=== PATIENT | male | born 1950 | race Caucasian/White ===

== ENCOUNTER 2020-12-01 08:18 | Emergency (ER) | payer OTHER, MEDICAID ==
[~2020-12-01] VITALS: Ht 180.3 cm; Wt 97.3 kg
[2020-12-01] MEDS ORDERED: FUROSEMIDE 40 MG/4 ML VIAL IV ONE (08:45)
[2020-12-01 09:04] LABS: Basophils # (auto) 0.1 10 ^3/uL (0-0.2); Basophils % (auto) 0.7 % (0.0-2.0); Eosinophils # (auto) 0.2 10 ^3/uL (0-0.8); Eosinophils % (auto) 1.3 % (0.0-7.0); Hematocrit 46.4 % (41.0-53.0); Hemoglobin 15.4 g/dL (13.5-17.5); Lymphocytes # (auto) 1.2 10 ^3/uL (0.4-5.4); Mean Corpuscular Hemoglobin 27.5 pg (28.0-32.0); Mean Corpuscular Hgb Conc. 33.1 g/dL (32.0-36.0); Mean Corpuscular Volume 82.9 fL (80.0-100.0); Monocytes # (auto) 0.7 10 ^3/uL (0-1.3); Monocytes % (auto) 5.9 % (0.0-12.0); Neutrophils # (auto) 10.3 10 ^3/uL (1.6-8.6); Neutrophils % (auto) 82.1 % (37.0-80.0); Nucleated Red Blood Cells % 0.2 %; Platelet Count (auto) 266 10^3/uL (140-450); Red Blood Cells 5.61 10^6/uL (4.5-5.90); Red Cell Distribution Width 15.3 % (11.8-14.3); White Blood Cell 12.6 10^3/uL (4.4-10.8)
[2020-12-01 09:17] LABS: INR 1.04 (0.9-1.15)
[2020-12-01 09:19] LABS: Albumin 2.7 g/dL (3.4-5.0); Anion Gap 8 (5-15); Blood Urea Nitrogen 17 mg/dL (7-18); Calcium 8.2 mg/dL (8.5-10.1); Carbon Dioxide 24 mmol/L (21-32); Chloride 102 mmol/L (98-107); Glucose 317 mg/dL (74-106); Potassium 3.9 mmol/L (3.5-5.1); Sodium 134 mmol/L (136-145)
[2020-12-01 09:29] LABS: Alanine Aminotransferase 24 U/L (16-61); Alkaline Phosphatase 103 U/L (45-117); Aspartate Aminotransferase 11 U/L (15-37); BUN/Creatinine Ratio 15.5; Bilirubin, Total 0.8 mg/dL (0.2-1.0); GFR African American 85 mL/min; GFR Non-African American 71 mL/min
[2020-12-01 09:48] LABS: Urine WBC None Seen /hpf (0 - 3)
[2020-12-01 09:56] LABS: Urine Bacteria NONE SEEN /hpf (None Seen); Urine Blood Negative /uL (Negative); Urine Specific Gravity 1.011 (1.001-1.035)
[2020-12-01 12:35] VITALS: BP 154/83
== END 2020-12-01 12:45 | disposition home or self-care (01) ==
LOC: EDBD 08:18 → EDUNIT# 08:18 → ER 08:18
DX: I50.9 Heart failure, unspecified (principal); Z86.73 Personal history of transient ischemic attack (TIA), and cerebral infarction without residual deficits
CPT/HCPCS: 36415; 71045; 80053; 81001; 83880; 84484; 85025; 85610; 85730; 93005; 96374; 99284; J1940

== ENCOUNTER 2021-01-03 08:26 | Emergency (ER) | payer MEDICAID, OTHER ==
[~2021-01-03] VITALS: Ht 175.3 cm; Wt 113.4 kg
[2021-01-03] MEDS ORDERED: FUROSEMIDE 40 MG/4 ML VIAL IV ONE (09:00)
[2021-01-03 09:09] LABS: Basophils # (auto) 0.1 10 ^3/uL (0-0.2); Basophils % (auto) 1.2 % (0.0-2.0); Eosinophils # (auto) 0.2 10 ^3/uL (0-0.8); Eosinophils % (auto) 2.6 % (0.0-7.0); Hematocrit 46.2 % (41.0-53.0); Hemoglobin 15.4 g/dL (13.5-17.5); Lymphocytes # (auto) 1.8 10 ^3/uL (0.4-5.4); Lymphocytes % (auto) 19.6 % (10.0-50.0); Mean Corpuscular Hemoglobin 27.3 pg (28.0-32.0); Mean Corpuscular Hgb Conc. 33.3 g/dL (32.0-36.0); Mean Corpuscular Volume 82.1 fL (80.0-100.0); Monocytes # (auto) 0.8 10 ^3/uL (0-1.3); Neutrophils # (auto) 6.1 10 ^3/uL (1.6-8.6); Neutrophils % (auto) 67.6 % (37.0-80.0); Nucleated Red Blood Cells % 0.1 %; Platelet Count (auto) 353 10^3/uL (140-450); Red Blood Cells 5.63 10^6/uL (4.5-5.90); Red Cell Distribution Width 15.3 % (11.8-14.3); White Blood Cell 9.1 10^3/uL (4.4-10.8)
[2021-01-03 09:25] LABS: Albumin 3.1 g/dL (3.4-5.0); BUN/Creatinine Ratio 16.5; Calcium 9.1 mg/dL (8.5-10.1); Potassium 4.1 mmol/L (3.5-5.1)
[2021-01-03 09:29] LABS: Bilirubin, Total 0.5 mg/dL (0.2-1.0); Total Protein 7.6 g/dL (6.4-8.2)
[2021-01-03] MEDS ORDERED: cefTRIAXone 1GM/50ML D5W 50 ML IV ONE (10:30)
[2021-01-03 11:25] LABS: Urine WBC None Seen /hpf (0 - 3)
[2021-01-03 11:43] LABS: Urine Bacteria NONE SEEN /hpf (None Seen); Urine Blood Negative /uL (Negative); Urine Mucus FEW (None Seen); Urine Specific Gravity 1.008 (1.001-1.035)
[2021-01-03 12:03] VITALS: BP 107/68
== END 2021-01-03 12:42 | disposition home or self-care (01) ==
LOC: EDBD 08:26 → ER 08:26
DX: I11.0 Hypertensive heart disease with heart failure (principal); I50.43 Acute on chronic combined systolic (congestive) and diastolic (congestive) heart failure; E11.9 Type 2 diabetes mellitus without complications; Z20.822 Contact with and (suspected) exposure to COVID-19
CPT/HCPCS: 36415; 71045; 80053; 81001; 83880; 85025; 87426; 93005; 96365; 96366; 96375; 99284; J0696; J1940

== ENCOUNTER 2022-06-18 09:07 | Emergency (ER) | payer OTHER ==
[~2022-06-18] VITALS: Ht 177.8 cm; Wt 95.0 kg
[2022-06-18] MEDS ORDERED: ACCU-CHEK COMFORT CURVE STRIP VI ONE (09:30)
[2022-06-18 10:55] LABS: Basophils # (auto) 0.1 10 ^3/uL (0-0.2); Basophils % (auto) 0.6 % (0.0-2.0); Eosinophils # (auto) 0.2 10 ^3/uL (0-0.8); Eosinophils % (auto) 1.7 % (0.0-7.0); Hematocrit 45.4 % (41.0-53.0); Hemoglobin 15.4 g/dL (13.5-17.5); Lymphocytes # (auto) 1.8 10 ^3/uL (0.4-5.4); Lymphocytes % (auto) 16.4 % (10.0-50.0); Mean Corpuscular Hgb Conc. 33.9 g/dL (32.0-36.0); Mean Corpuscular Volume 85.7 fL (80.0-100.0); Monocytes # (auto) 0.9 10 ^3/uL (0-1.3); Monocytes % (auto) 8.1 % (0.0-12.0); Neutrophils # (auto) 7.9 10 ^3/uL (1.6-8.6); Neutrophils % (auto) 73.2 % (37.0-80.0); Nucleated Red Blood Cells % 0.1 %; Red Blood Cells 5.29 10^6/uL (4.5-5.90); Red Cell Distribution Width 13.7 % (11.8-14.3); White Blood Cell 10.7 10^3/uL (4.4-10.8)
[2022-06-18 11:12] LABS: Albumin 3.2 g/dL (3.4-5.0); Calcium 9.1 mg/dL (8.5-10.1); Potassium 3.8 mmol/L (3.5-5.1)
[2022-06-18 11:14] LABS: BUN/Creatinine Ratio 19.2
[2022-06-18 11:17] LABS: Bilirubin, Total 0.8 mg/dL (0.2-1.0); Total Protein 6.9 g/dL (6.4-8.2)
[2022-06-18 11:37] LABS: Alcohol, Urine < 3.0 mg/dL (0-10); Amphetamine Screen, Urine POSITIVE (NEGATIVE); Barbiturate Scree,Urine NEGATIVE (NEGATIVE); Benzodiazephine Screen, Urine NEGATIVE (NEGATIVE); Cannabinoid Screen, Urine NEGATIVE (NEGATIVE); Cocaine Screen, Urine NEGATIVE (NEGATIVE); Opiate Scree,Urine NEGATIVE (NEGATIVE); Phencyclidine Screen, Urine NEGATIVE (NEGATIVE)
[2022-06-18 11:39] LABS: Urine Bacteria NONE SEEN /hpf (None Seen); Urine Blood Negative /uL (Negative); Urine WBC 1 /hpf (0 - 3)
[2022-06-18] MEDS ORDERED: SODIUM CHLORIDE 0.9% 1,000 ML IV ONE (12:45)
[2022-06-18] MEDS ORDERED: SODIUM CHLORIDE 0.9% 1,000 ML IVB ONE (12:45)
[2022-06-18] MEDS ORDERED: ASPirin 81 mg TAB PO ONE (12:45)
[2022-06-18 16:20] VITALS: BP 150/91
== END 2022-06-18 16:22 | disposition home or self-care (01) ==
LOC: EDBD 09:07 → ER 09:14
DX: R55 Syncope and collapse (principal); E11.65 Type 2 diabetes mellitus with hyperglycemia; E11.21 Type 2 diabetes mellitus with diabetic nephropathy; E44.1 Mild protein-calorie malnutrition; F15.10 Other stimulant abuse, uncomplicated; Z98.61 Coronary angioplasty status; Z68.30 Body mass index [BMI] 30.0-30.9, adult
CPT/HCPCS: 36415; 70450; 71045; 80053; 80307; 81001; 83605; 83735; 83880; 84484; 85025; 85379; 87040; 93005; 96360; 96361; 99284; J7030

== ENCOUNTER 2022-08-11 13:13 | Emergency (ER) | payer OTHER ==
[~2022-08-11] VITALS: Ht 175.3 cm; Wt 94.3 kg
[2022-08-11] MEDS ORDERED: AZITHROMYCIN 500MG/ 250ML 250 ML IV ONE (13:30)
[2022-08-11] MEDS ORDERED: methylPREDNISolone SOD SUCC 125 MG/2 ML VL IV ONE (13:30)
[2022-08-11 14:00] LABS: Basophils # (auto) 0 10 ^3/uL (0-0.2); Basophils % (auto) 0.6 % (0.0-2.0); Eosinophils # (auto) 0 10 ^3/uL (0-0.8); Eosinophils % (auto) 0.2 % (0.0-7.0); Hematocrit 45.1 % (41.0-53.0); Lymphocytes # (auto) 0.5 10 ^3/uL (0.4-5.4); Lymphocytes % (auto) 6.4 % (10.0-50.0); Mean Corpuscular Hemoglobin 28.3 pg (28.0-32.0); Mean Corpuscular Hgb Conc. 33.2 g/dL (32.0-36.0); Mean Corpuscular Volume 85.4 fL (80.0-100.0); Monocytes # (auto) 0.6 10 ^3/uL (0-1.3); Monocytes % (auto) 8.6 % (0.0-12.0); Neutrophils # (auto) 6.3 10 ^3/uL (1.6-8.6); Neutrophils % (auto) 84.2 % (37.0-80.0); Nucleated Red Blood Cells % 0.1 %; Red Blood Cells 5.29 10^6/uL (4.5-5.90); Red Cell Distribution Width 14.1 % (11.8-14.3); White Blood Cell 7.4 10^3/uL (4.4-10.8)
[2022-08-11 14:17] LABS: Albumin 3.3 g/dL (3.4-5.0); Calcium 8.6 mg/dL (8.5-10.1); Magnesium 2.1 mg/dL (1.6-2.6)
[2022-08-11 14:20] LABS: BUN/Creatinine Ratio 16.4; Bilirubin, Total 0.7 mg/dL (0.2-1.0); Total Protein 6.7 g/dL (6.4-8.2)
[2022-08-11] MEDS ORDERED: METH4PAK PO ×2 (15:02→16:59)
[2022-08-11] MEDS ORDERED: AZIT1POW PO ×2 (15:02→16:59)
[2022-08-11 16:48] VITALS: BP 129/68
== END 2022-08-11 16:48 | disposition home or self-care (01) ==
LOC: ER 13:13
DX: U07.1 COVID-19 (principal); I11.0 Hypertensive heart disease with heart failure; I50.9 Heart failure, unspecified; E11.9 Type 2 diabetes mellitus without complications; I25.2 Old myocardial infarction; R07.89 Other chest pain
CPT/HCPCS: 36415; 71046; 80053; 83605; 83735; 83880; 84484; 85025; 85379; 87040; 87426; 87804; 96365; 96366; 96375; 99284; J0456; J2930

== ENCOUNTER 2022-09-19 01:39 | Emergency (ER) | payer OTHER ==
[~2022-09-19] VITALS: Ht 175.3 cm; Wt 93.0 kg
[~2022-09-19 01:39] MED LIST: AZIT1POW PO; METH4PAK PO
[2022-09-19 01:57] VITALS: BP 134/76
== END 2022-09-19 04:13 | disposition left against medical advice (07) ==
LOC: ER 01:39
DX: R21 Rash and other nonspecific skin eruption (principal); Z53.21 Procedure and treatment not carried out due to patient leaving prior to being seen by health care provider

== ENCOUNTER 2023-03-09 16:15 | Emergency (ER) | payer BC, OTHER ==
[~2023-03-09] VITALS: Ht 175.3 cm; Wt 90.1 kg
[2023-03-09 16:45] VITALS: PULSE 99; RESP 20; O2SAT 97
[2023-03-09 17:04] LABS: Basophils # (auto) 0.1 10 ^3/uL (0-0.2); Basophils % (auto) 0.9 % (0.0-2.0); Eosinophils # (auto) 0.1 10 ^3/uL (0-0.8); Eosinophils % (auto) 1.5 % (0.0-7.0); Hematocrit 38.6 % (41.0-53.0); Hemoglobin 12.8 g/dL (13.5-17.5); Lymphocytes # (auto) 0.8 10 ^3/uL (0.4-5.4); Lymphocytes % (auto) 12.8 % (10.0-50.0); Mean Corpuscular Hemoglobin 27.9 pg (28.0-32.0); Mean Corpuscular Hgb Conc. 33.2 g/dL (32.0-36.0); Mean Corpuscular Volume 84.1 fL (80.0-100.0); Monocytes # (auto) 0.6 10 ^3/uL (0-1.3); Neutrophils # (auto) 4.8 10 ^3/uL (1.6-8.6); Neutrophils % (auto) 75.8 % (37.0-80.0); Red Blood Cells 4.59 10^6/uL (4.5-5.90); Red Cell Distribution Width 14.1 % (11.8-14.3); White Blood Cell 6.3 10^3/uL (4.4-10.8)
[2023-03-09 17:21] LABS: Albumin 2.5 g/dL (3.4-5.0); Magnesium 1.9 mg/dL (1.6-2.6); Potassium 4.5 mmol/L (3.5-5.1)
[2023-03-09 17:24] LABS: BUN/Creatinine Ratio 14.9 (10.0-20.0); Bilirubin, Total 0.4 mg/dL (0.2-1.0); Total Protein 5.4 g/dL (6.4-8.2)
[2023-03-09] MEDS ORDERED: InsuLIN REG 1unit/0.01ml Soln (100units/ml) IV ONE (19:00)
[2023-03-09] MEDS ORDERED: SODIUM CHLORIDE 0.9% 2,000 ML IV ONE (19:00)
[2023-03-09 19:34] VITALS: PULSE 103; RESP 22; O2SAT 94
[2023-03-09 20:00] VITALS: TEMP 98.9
[2023-03-09 20:40] LABS: Urine Bacteria NONE SEEN /hpf (None Seen); Urine Blood Negative /uL (Negative); Urine Clarity Clear (Clear); Urine Color Yellow (Yellow); Urine Protein, UAD 2+ (Negative); Urine Specific Gravity 1.025 (1.001-1.035); Urine Urobilinogen Normal (Negative); Urine WBC <1 /hpf (0 - 3)
[2023-03-09 20:54] LABS: Alcohol, Urine < 3.0 mg/dL (0-10); Amphetamine Screen, Urine POSITIVE (NEGATIVE); Barbiturate Scree,Urine NEGATIVE (NEGATIVE); Benzodiazephine Screen, Urine NEGATIVE (NEGATIVE); Cannabinoid Screen, Urine NEGATIVE (NEGATIVE); Cocaine Screen, Urine NEGATIVE (NEGATIVE); Phencyclidine Screen, Urine NEGATIVE (NEGATIVE)
[2023-03-09 21:01] LABS: Opiate Scree,Urine NEGATIVE (NEGATIVE)
[2023-03-09 21:42] VITALS: BP 126/94; PULSE 110; RESP 20; O2SAT 97
== END 2023-03-09 21:41 | disposition home or self-care (01) ==
LOC: ER 16:15 → EDBD 16:15 → ER 21:39
DX: E11.65 Type 2 diabetes mellitus with hyperglycemia (principal); R06.00 Dyspnea, unspecified; I11.0 Hypertensive heart disease with heart failure; I50.9 Heart failure, unspecified; I25.2 Old myocardial infarction; F15.10 Other stimulant abuse, uncomplicated; Z79.899 Other long term (current) drug therapy
CPT/HCPCS: 36415; 71045; 80053; 80307; 81001; 82010; 82962; 83735; 83880; 84484; 85025; 96361; 96374; 99285; J1815; J7030

== ENCOUNTER 2023-03-09 23:46 | Inpatient (IN) | payer BC, MEDICAID ==
[~2023-03-09] VITALS: Ht 175.3 cm; Wt 91.8 kg
[2023-03-10 00:30] VITALS: PULSE 102; RESP 96; O2SAT 95
[2023-03-10 03:56] LABS: Basophils # (auto) 0 10 ^3/uL (0-0.2); Basophils % (auto) 0.4 % (0.0-2.0); Eosinophils # (auto) 0.1 10 ^3/uL (0-0.8); Eosinophils % (auto) 1.6 % (0.0-7.0); Hematocrit 38.8 % (41.0-53.0); Hemoglobin 12.6 g/dL (13.5-17.5); Lymphocytes # (auto) 1.3 10 ^3/uL (0.4-5.4); Mean Corpuscular Hemoglobin 27.8 pg (28.0-32.0); Mean Corpuscular Hgb Conc. 32.5 g/dL (32.0-36.0); Mean Corpuscular Volume 85.4 fL (80.0-100.0); Monocytes # (auto) 0.8 10 ^3/uL (0-1.3); Monocytes % (auto) 11.2 % (0.0-12.0); Neutrophils % (auto) 68.8 % (37.0-80.0); Red Blood Cells 4.54 10^6/uL (4.5-5.90); Red Cell Distribution Width 14.1 % (11.8-14.3); White Blood Cell 7.2 10^3/uL (4.4-10.8)
[2023-03-10 04:18] LABS: Albumin 2.3 g/dL (3.4-5.0); BUN/Creatinine Ratio 15.6 (10.0-20.0); Calcium 7.7 mg/dL (8.5-10.1); Magnesium 1.7 mg/dL (1.6-2.6); Potassium 3.8 mmol/L (3.5-5.1)
[2023-03-10 04:21] LABS: Bilirubin, Total 0.4 mg/dL (0.2-1.0); Total Protein 5.8 g/dL (6.4-8.2)
[2023-03-10] MEDS ORDERED: IOHEXOL 350 MG/ML 100ML IJ ONE ×2 (05:24→13:35)
[2023-03-10] MEDS ORDERED: ALBUTEROL SULF 2.5 MG/0.5ML(0.5%) NEB SOLN NEB ONE (06:15)
[2023-03-10 06:20] LABS: COVID19 ANTIGEN SOFIA FIA NEGATIVE (NEGATIVE); Rapid Influenza A Negative (Negative); Rapid Influenza B Negative (Negative)
[2023-03-10] MEDS ORDERED: NITROGLYCERIN 0.4 MG SL TAB SL PRN (07:15)
[2023-03-10] MEDS ORDERED: ONDANSETRON HCL 4 MG/2 ML VIAL IV PRN (07:15)
[2023-03-10] MEDS ORDERED: ALBUMIN 25% 100 ML IV ONE (07:15)
[2023-03-10] MEDS ORDERED: MORPHINE SULFATE INJ 2 MG/ml SYRG IV PRN (07:15)
[2023-03-10] MEDS ORDERED: DEXTROSE (50%) 50ML SYRG IV PRN (07:15)
[2023-03-10] MEDS ORDERED: ALBUTEROL SULF 2.5 MG/0.5ML(0.5%) NEB SOLN NEB PRN (07:15)
[2023-03-10 08:00] VITALS: PULSE 97; RESP 20; O2SAT 99
[2023-03-10 08:26] LABS: Albumin 2.3 g/dL (3.4-5.0); Calcium 7.9 mg/dL (8.5-10.1); Potassium 3.8 mmol/L (3.5-5.1)
[2023-03-10 08:29] LABS: Basophils # (auto) 0 10 ^3/uL (0-0.2); Basophils % (auto) 0.4 % (0.0-2.0); Eosinophils # (auto) 0.1 10 ^3/uL (0-0.8); Hematocrit 38.7 % (41.0-53.0); Hemoglobin 12.8 g/dL (13.5-17.5); Lymphocytes # (auto) 1.3 10 ^3/uL (0.4-5.4); Lymphocytes % (auto) 21.9 % (10.0-50.0); Mean Corpuscular Hemoglobin 27.8 pg (28.0-32.0); Mean Corpuscular Volume 84.3 fL (80.0-100.0); Monocytes # (auto) 0.7 10 ^3/uL (0-1.3); Monocytes % (auto) 11.5 % (0.0-12.0); Neutrophils # (auto) 3.9 10 ^3/uL (1.6-8.6); Neutrophils % (auto) 64.2 % (37.0-80.0); Nucleated Red Blood Cells % 0.1 %; Red Blood Cells 4.59 10^6/uL (4.5-5.90)
[2023-03-10 08:30] LABS: BUN/Creatinine Ratio 12.5 (10.0-20.0); Bilirubin, Total 0.5 mg/dL (0.2-1.0); Total Protein 5.8 g/dL (6.4-8.2)
[2023-03-10 08:32] VITALS: BP 131/77; PULSE 108; RESP 16; TEMP 98.9; O2SAT 97
[2023-03-10 08:42] LABS: Urine Bacteria NONE SEEN /hpf (None Seen); Urine Blood Negative /uL (Negative); Urine Clarity Clear (Clear); Urine Color Colorless (Yellow); Urine Protein, UAD 1+ (Negative); Urine Specific Gravity 1.023 (1.001-1.035); Urine Urobilinogen Normal (Negative); Urine WBC <1 /hpf (0 - 3)
[2023-03-10 08:55] LABS: Alcohol, Urine < 3.0 mg/dL (0-10); Amphetamine Screen, Urine POSITIVE (NEGATIVE); Barbiturate Scree,Urine NEGATIVE (NEGATIVE); Benzodiazephine Screen, Urine NEGATIVE (NEGATIVE); Cannabinoid Screen, Urine NEGATIVE (NEGATIVE); Cocaine Screen, Urine NEGATIVE (NEGATIVE)
[2023-03-10 09:03] LABS: Opiate Scree,Urine NEGATIVE (NEGATIVE); Phencyclidine Screen, Urine NEGATIVE (NEGATIVE)
[2023-03-10] MEDS: ACCU-CHEK COMFORT CURVE STRIP VI SCH ×3 (11:58→22:13)
[2023-03-10] MEDS: InsuLIN REG 1unit/0.01ml Soln (100units/ml) SC SCH ×3 (11:59→22:20)
[2023-03-10] MEDS ORDERED: FUROSEMIDE 40 MG TAB PO ONE (13:15)
[2023-03-10] MEDS ORDERED: VALSARTAN 80 MG TAB PO ONE (13:15)
[2023-03-10] MEDS ORDERED: CARVEDILOL 3.125 MG TAB PO ONE (13:15)
[2023-03-10] MEDS: SODIUM CHLOR 0.9% PF (SALINE LOCK) 10ML VIAL/SYR IV SCH ×2 (13:48→22:04)
[2023-03-10 14:08] LABS: Cholesterol 106 mg/dL (< 200); HDL Cholesterol 32 mg/dL (40-59); LDL Cholesterol 67 mg/dL (< 100); Triglycerides 147 mg/dL (< 150)
[2023-03-10 17:22] VITALS: O2SAT 97
[2023-03-10 19:30] VITALS: PULSE 88; RESP 18; O2SAT 96
[2023-03-10] MEDS: CARVEDILOL 3.125 MG TAB PO SCH (22:20)
[2023-03-10] MEDS: ATORVASTATIN 20 MG TAB PO SCH (22:20)
[2023-03-11] VITALS (11 sets, daily range): BP systolic 115–134; BP diastolic 56–87; PULSE 73–96; RESP 18–20; TEMP 98.1–99.2; O2SAT 93–96
[2023-03-11 06:19] LABS: Basophils # (auto) 0 10 ^3/uL (0-0.2); Basophils % (auto) 0.4 % (0.0-2.0); Eosinophils # (auto) 0.1 10 ^3/uL (0-0.8); Eosinophils % (auto) 2.1 % (0.0-7.0); Hematocrit 36.7 % (41.0-53.0); Hemoglobin 12.2 g/dL (13.5-17.5); Lymphocytes # (auto) 1.2 10 ^3/uL (0.4-5.4); Lymphocytes % (auto) 18.1 % (10.0-50.0); Mean Corpuscular Hemoglobin 27.9 pg (28.0-32.0); Mean Corpuscular Hgb Conc. 33.2 g/dL (32.0-36.0); Mean Corpuscular Volume 84.1 fL (80.0-100.0); Monocytes # (auto) 0.7 10 ^3/uL (0-1.3); Monocytes % (auto) 10.4 % (0.0-12.0); Neutrophils # (auto) 4.6 10 ^3/uL (1.6-8.6); Nucleated Red Blood Cells % 0.1 %; Red Blood Cells 4.37 10^6/uL (4.5-5.90); Red Cell Distribution Width 14.1 % (11.8-14.3); White Blood Cell 6.6 10^3/uL (4.4-10.8)
[2023-03-11] MEDS: SODIUM CHLOR 0.9% PF (SALINE LOCK) 10ML VIAL/SYR IV SCH ×3 (06:44→21:19)
[2023-03-11 06:45] LABS: Potassium 3.8 mmol/L (3.5-5.1)
[2023-03-11] MEDS: EMPAGLIFLOZIN 10 MG TAB PO SCH (06:45)
[2023-03-11] MEDS: ACCU-CHEK COMFORT CURVE STRIP VI SCH ×4 (06:45→21:20)
[2023-03-11] MEDS: InsuLIN REG 1unit/0.01ml Soln (100units/ml) SC SCH ×4 (06:50→21:22)
[2023-03-11 06:55] LABS: Albumin 2.4 g/dL (3.4-5.0); BUN/Creatinine Ratio 17.9 (10.0-20.0); Bilirubin, Total 0.3 mg/dL (0.2-1.0); Calcium 8.1 mg/dL (8.5-10.1); Total Protein 5.7 g/dL (6.4-8.2)
[2023-03-11] MEDS: ASPirin 81 mg TAB PO SCH (09:46)
[2023-03-11] MEDS: SPIRONOLACTONE 25 MG TAB PO SCH (09:46)
[2023-03-11] MEDS: CARVEDILOL 3.125 MG TAB PO SCH ×2 (09:47→21:20)
[2023-03-11] MEDS: VALSARTAN 80 MG TAB PO SCH (09:48)
[2023-03-11] MEDS: FUROSEMIDE 40 MG TAB PO SCH (10:14)
[2023-03-11] MEDS: ATORVASTATIN 20 MG TAB PO SCH (21:20)
[2023-03-11] MEDS: HYDROcodone-ACET 5/325MG TAB PO PRN (22:40)
[2023-03-12] VITALS (9 sets, daily range): BP systolic 101–133; BP diastolic 51–74; PULSE 58–84; RESP 16–22; TEMP 97.2–98.7; O2SAT 94–96
[2023-03-12] MEDS: EMPAGLIFLOZIN 10 MG TAB PO SCH (06:16)
[2023-03-12] MEDS: SODIUM CHLOR 0.9% PF (SALINE LOCK) 10ML VIAL/SYR IV SCH ×3 (06:16→22:04)
[2023-03-12] MEDS: ACCU-CHEK COMFORT CURVE STRIP VI SCH ×4 (06:23→22:08)
[2023-03-12] MEDS: InsuLIN REG 1unit/0.01ml Soln (100units/ml) SC SCH ×4 (06:23→22:12)
[2023-03-12] MEDS: ASPirin 81 mg TAB PO SCH (09:13)
[2023-03-12] MEDS: FUROSEMIDE 40 MG TAB PO SCH (09:13)
[2023-03-12] MEDS: SPIRONOLACTONE 25 MG TAB PO SCH (09:14)
[2023-03-12] MEDS: VALSARTAN 80 MG TAB PO SCH (09:14)
[2023-03-12] MEDS: CARVEDILOL 3.125 MG TAB PO SCH ×2 (09:14→22:08)
[2023-03-12] MEDS ORDERED: metFORMIN HYDROCHLORIDE 500 MG TAB PO ONE (10:30)
[2023-03-12] MEDS: metFORMIN HYDROCHLORIDE 500 MG TAB PO SCH (17:48)
[2023-03-12] MEDS: ATORVASTATIN 20 MG TAB PO SCH (22:00)
[2023-03-12] MEDS: HYDROcodone-ACET 5/325MG TAB PO PRN (22:21)
[2023-03-13] VITALS (32 sets, daily range): BP systolic 89–162; BP diastolic 41–135; PULSE 49–91; RESP 7–20; TEMP 97.8–99.2; O2SAT 93–98
[2023-03-13] MEDS: SODIUM CHLOR 0.9% PF (SALINE LOCK) 10ML VIAL/SYR IV SCH ×3 (06:38→21:17)
[2023-03-13] MEDS: ACCU-CHEK COMFORT CURVE STRIP VI SCH ×4 (06:38→21:18)
[2023-03-13] MEDS: EMPAGLIFLOZIN 10 MG TAB PO SCH (06:38)
[2023-03-13] MEDS: InsuLIN REG 1unit/0.01ml Soln (100units/ml) SC SCH ×4 (06:42→21:19)
[2023-03-13] MEDS: metFORMIN HYDROCHLORIDE 500 MG TAB PO SCH ×2 (08:00→18:00)
[2023-03-13] MEDS: ASPirin 81 mg TAB PO SCH (09:49)
[2023-03-13] MEDS: SPIRONOLACTONE 25 MG TAB PO SCH (09:50)
[2023-03-13] MEDS: CARVEDILOL 3.125 MG TAB PO SCH ×2 (09:50→21:18)
[2023-03-13] MEDS: VALSARTAN 80 MG TAB PO SCH (09:50)
[2023-03-13] MEDS ORDERED: IOHEXOL 350 MG/ML 100ML IJ ONE (12:15)
[2023-03-13] MEDS ORDERED: LIDOCAINE 2%HCL (LOCAL ANESTH.) INJ 20ML MDV ONE (12:15)
[2023-03-13] MEDS ORDERED: ANGIOMAX 250 MG VIAL IV ONE (12:20)
[2023-03-13] MEDS ORDERED: ATROPINE SULF 1 MG/10ml SYR ONE (12:20)
[2023-03-13] MEDS ORDERED: PHENYLEPHRINE HCL 10 MG/ML VL ONE (12:21)
[2023-03-13] MEDS ORDERED: EPINEPHrine HCL 1 MG/10 ML SYRG ONE (12:21)
[2023-03-13] MEDS ORDERED: SODIUM CHL 0.9% 50 ML ONE (12:21)
[2023-03-13] MEDS ORDERED: GLYCOPYRROLATE 0.2 MG/ML 1ML VIAL ONE (12:21)
[2023-03-13] MEDS ORDERED: PHENYLEPHRINE IV 0 ML IV ONE (12:23)
[2023-03-13 13:13] LABS: INR 1.13 (0.9-1.15); Partial Thromboplastin Time 33.6 SEC (24.5-34.5); Prothrombin Time 11.8 sec (9.3-11.8)
[2023-03-13] MEDS ORDERED: DOPamine 1600MCG/ML D5W 250 ML IV ONE (14:07)
[2023-03-13] MEDS ORDERED: CLOPIDOGREL 300 MG TAB ONE (14:18)
[2023-03-13] MEDS ORDERED: ASPirin 325 MG TAB ONE (14:19)
[2023-03-13] MEDS ORDERED: SODIUM CHLORIDE 0.9% 1,000 ML IV SCH (15:30)
[2023-03-13] MEDS ORDERED: DOPamine 1600MCG/ML D5W 250 ML IV SCH ×3 (15:45→17:00)
[2023-03-13] MEDS: DOPamine 1600MCG/ML D5W 250 ML IV SCH (16:45)
[2023-03-13] MEDS: PHENYLEPHRINE IV 250 ML IV SCH (20:51)
[2023-03-13] MEDS: ATORVASTATIN 20 MG TAB PO SCH (21:18)
[2023-03-14] VITALS (101 sets, daily range): BP systolic 87–142; BP diastolic 37–85; PULSE 46–89; RESP 8–31; TEMP 97.8–99.5; O2SAT 89–100
[2023-03-14 04:15] LABS: Basophils # (auto) 0 10 ^3/uL (0-0.2); Basophils % (auto) 0.2 % (0.0-2.0); Eosinophils # (auto) 0.1 10 ^3/uL (0-0.8); Eosinophils % (auto) 1.3 % (0.0-7.0); Hematocrit 37.9 % (41.0-53.0); Hemoglobin 12.7 g/dL (13.5-17.5); Lymphocytes # (auto) 0.9 10 ^3/uL (0.4-5.4); Lymphocytes % (auto) 9.5 % (10.0-50.0); Mean Corpuscular Hemoglobin 28.3 pg (28.0-32.0); Mean Corpuscular Hgb Conc. 33.5 g/dL (32.0-36.0); Mean Corpuscular Volume 84.3 fL (80.0-100.0); Monocytes # (auto) 0.7 10 ^3/uL (0-1.3); Monocytes % (auto) 7.1 % (0.0-12.0); Neutrophils # (auto) 7.6 10 ^3/uL (1.6-8.6); Neutrophils % (auto) 81.9 % (37.0-80.0); Red Cell Distribution Width 14.1 % (11.8-14.3); White Blood Cell 9.2 10^3/uL (4.4-10.8)
[2023-03-14 04:29] LABS: Albumin 2.4 g/dL (3.4-5.0); Potassium 4.1 mmol/L (3.5-5.1)
[2023-03-14 04:33] LABS: BUN/Creatinine Ratio 17.8 (10.0-20.0); Bilirubin, Total 0.4 mg/dL (0.2-1.0); Total Protein 6.2 g/dL (6.4-8.2)
[2023-03-14] MEDS: ACCU-CHEK COMFORT CURVE STRIP VI SCH ×4 (06:06→21:16)
[2023-03-14] MEDS: InsuLIN REG 1unit/0.01ml Soln (100units/ml) SC SCH ×4 (06:07→21:18)
[2023-03-14] MEDS: SODIUM CHLOR 0.9% PF (SALINE LOCK) 10ML VIAL/SYR IV SCH ×3 (06:07→21:16)
[2023-03-14] MEDS: PHENYLEPHRINE IV 250 ML IV SCH ×2 (06:17→11:55)
[2023-03-14] MEDS: EMPAGLIFLOZIN 10 MG TAB PO SCH ×2 (07:00→08:50)
[2023-03-14] MEDS: metFORMIN HYDROCHLORIDE 500 MG TAB PO SCH (08:00)
[2023-03-14] MEDS: VALSARTAN 80 MG TAB PO SCH (10:00)
[2023-03-14] MEDS: CARVEDILOL 3.125 MG TAB PO SCH ×3 (10:00→21:16)
[2023-03-14] MEDS: SPIRONOLACTONE 25 MG TAB PO SCH (10:21)
[2023-03-14] MEDS: ASPirin 81 mg TAB PO SCH (10:22)
[2023-03-14] MEDS: DOPamine 1600MCG/ML D5W 250 ML IV SCH (15:13)
[2023-03-14] MEDS: ATORVASTATIN 20 MG TAB PO SCH (21:14)
[2023-03-14] MEDS: ACETAMINOPHEN 325 MG TAB PO PRN (21:51)
[2023-03-15] VITALS (79 sets, daily range): BP systolic 79–123; BP diastolic 32–64; PULSE 48–78; RESP 10–23; TEMP 98–98.8; O2SAT 90–100
[2023-03-15 04:26] LABS: Basophils # (auto) 0 10 ^3/uL (0-0.2); Basophils % (auto) 0.2 % (0.0-2.0); Eosinophils # (auto) 0.2 10 ^3/uL (0-0.8); Hematocrit 35.5 % (41.0-53.0); Hemoglobin 11.8 g/dL (13.5-17.5); Lymphocytes # (auto) 1.2 10 ^3/uL (0.4-5.4); Lymphocytes % (auto) 12.8 % (10.0-50.0); Mean Corpuscular Hemoglobin 28.3 pg (28.0-32.0); Mean Corpuscular Hgb Conc. 33.4 g/dL (32.0-36.0); Mean Corpuscular Volume 84.8 fL (80.0-100.0); Monocytes # (auto) 0.9 10 ^3/uL (0-1.3); Monocytes % (auto) 9.3 % (0.0-12.0); Neutrophils % (auto) 75.7 % (37.0-80.0); Red Blood Cells 4.18 10^6/uL (4.5-5.90); Red Cell Distribution Width 14.2 % (11.8-14.3); White Blood Cell 9.3 10^3/uL (4.4-10.8)
[2023-03-15 04:42] LABS: Albumin 2.3 g/dL (3.4-5.0); Calcium 8.2 mg/dL (8.5-10.1); Potassium 3.7 mmol/L (3.5-5.1)
[2023-03-15 04:48] LABS: BUN/Creatinine Ratio 20.8 (10.0-20.0); Bilirubin, Total 0.4 mg/dL (0.2-1.0); Total Protein 5.8 g/dL (6.4-8.2)
[2023-03-15] MEDS: EMPAGLIFLOZIN 10 MG TAB PO SCH (07:02)
[2023-03-15] MEDS: ACCU-CHEK COMFORT CURVE STRIP VI SCH ×3 (07:03→21:33)
[2023-03-15] MEDS: SODIUM CHLOR 0.9% PF (SALINE LOCK) 10ML VIAL/SYR IV SCH ×3 (07:04→21:32)
[2023-03-15] MEDS: InsuLIN REG 1unit/0.01ml Soln (100units/ml) SC SCH ×3 (07:12→21:36)
[2023-03-15] MEDS: ACETAMINOPHEN 325 MG TAB PO PRN ×3 (07:16→21:32)
[2023-03-15] MEDS: CARVEDILOL 3.125 MG TAB PO SCH ×2 (09:34→21:32)
[2023-03-15] MEDS: VALSARTAN 80 MG TAB PO SCH (09:34)
[2023-03-15] MEDS: ASPirin 81 mg TAB PO SCH (09:35)
[2023-03-15] MEDS: SPIRONOLACTONE 25 MG TAB PO SCH (09:35)
[2023-03-15] MEDS: ATORVASTATIN 20 MG TAB PO SCH (21:32)
[2023-03-16] VITALS (9 sets, daily range): BP systolic 117–145; BP diastolic 52–86; PULSE 52–67; RESP 14–20; TEMP 97.3–98.3; O2SAT 94–98
[2023-03-16] MEDS: ACETAMINOPHEN 325 MG TAB PO PRN ×2 (02:07→22:22)
[2023-03-16] MEDS: EMPAGLIFLOZIN 10 MG TAB PO SCH (06:30)
[2023-03-16] MEDS: InsuLIN REG 1unit/0.01ml Soln (100units/ml) SC SCH ×4 (06:30→22:29)
[2023-03-16] MEDS: HYDROcodone-ACET 5/325MG TAB PO PRN ×3 (06:30→15:25)
[2023-03-16] MEDS: ACCU-CHEK COMFORT CURVE STRIP VI SCH ×4 (06:33→22:30)
[2023-03-16] MEDS: SODIUM CHLOR 0.9% PF (SALINE LOCK) 10ML VIAL/SYR IV SCH ×3 (06:33→22:26)
[2023-03-16] MEDS: VALSARTAN 80 MG TAB PO SCH (09:46)
[2023-03-16] MEDS: ASPirin 81 mg TAB PO SCH (09:46)
[2023-03-16] MEDS: SPIRONOLACTONE 25 MG TAB PO SCH (09:46)
[2023-03-16] MEDS: CARVEDILOL 3.125 MG TAB PO SCH ×2 (09:47→22:00)
[2023-03-16] MEDS ORDERED: HYDROmorphone HCL 2 MG/ML VL/or syr IV PRN (16:15)
[2023-03-16] MEDS: KETOROLAC TROMETH 30 MG/ML 1ML VIAL IV PRN (17:47)
[2023-03-16] MEDS: ATORVASTATIN 20 MG TAB PO SCH (22:22)
[2023-03-17] VITALS (8 sets, daily range): BP systolic 132–152; BP diastolic 53–69; PULSE 52–98; RESP 16–20; TEMP 97.6–98.1; O2SAT 51–100
[2023-03-17] MEDS: EMPAGLIFLOZIN 10 MG TAB PO SCH (06:14)
[2023-03-17] MEDS: SODIUM CHLOR 0.9% PF (SALINE LOCK) 10ML VIAL/SYR IV SCH ×3 (06:14→21:40)
[2023-03-17] MEDS: ACCU-CHEK COMFORT CURVE STRIP VI SCH ×4 (06:18→21:45)
[2023-03-17] MEDS: InsuLIN REG 1unit/0.01ml Soln (100units/ml) SC SCH ×4 (06:18→21:45)
[2023-03-17] MEDS: ACETAMINOPHEN 325 MG TAB PO PRN (07:02)
[2023-03-17] MEDS: FLUDROCORTISONE ACETATE 0.1 MG TAB PO SCH (10:04)
[2023-03-17] MEDS: CARVEDILOL 3.125 MG TAB PO SCH ×2 (10:04→21:41)
[2023-03-17] MEDS: ASPirin 81 mg TAB PO SCH (10:05)
[2023-03-17] MEDS: VALSARTAN 80 MG TAB PO SCH (10:05)
[2023-03-17] MEDS: SPIRONOLACTONE 25 MG TAB PO SCH (10:05)
[2023-03-17] MEDS: KETOROLAC TROMETH 30 MG/ML 1ML VIAL IV PRN (11:03)
[2023-03-17] MEDS: ATORVASTATIN 20 MG TAB PO SCH (21:40)
[2023-03-18] VITALS (8 sets, daily range): BP systolic 120–169; BP diastolic 49–69; PULSE 47–63; RESP 16–20; TEMP 97.8–98.3; O2SAT 94–99
[2023-03-18] MEDS: KETOROLAC TROMETH 30 MG/ML 1ML VIAL IV PRN ×2 (00:54→14:54)
[2023-03-18] MEDS: SODIUM CHLOR 0.9% PF (SALINE LOCK) 10ML VIAL/SYR IV SCH ×3 (06:07→22:17)
[2023-03-18] MEDS: EMPAGLIFLOZIN 10 MG TAB PO SCH (06:08)
[2023-03-18] MEDS: ACCU-CHEK COMFORT CURVE STRIP VI SCH ×4 (06:08→22:17)
[2023-03-18] MEDS: InsuLIN REG 1unit/0.01ml Soln (100units/ml) SC SCH ×4 (06:11→22:16)
[2023-03-18] MEDS: ASPirin 81 mg TAB PO SCH (09:47)
[2023-03-18] MEDS: VALSARTAN 80 MG TAB PO SCH (09:48)
[2023-03-18] MEDS: CARVEDILOL 3.125 MG TAB PO SCH ×2 (09:49→22:12)
[2023-03-18] MEDS: FLUDROCORTISONE ACETATE 0.1 MG TAB PO SCH (09:49)
[2023-03-18] MEDS: SPIRONOLACTONE 25 MG TAB PO SCH (09:50)
[2023-03-18 09:55] LABS: COVID19 ANTIGEN SOFIA FIA NEGATIVE (NEGATIVE)
[2023-03-18] MEDS: ATORVASTATIN 20 MG TAB PO SCH (22:11)
[2023-03-19] VITALS (8 sets, daily range): BP systolic 135–165; BP diastolic 54–72; PULSE 54–72; RESP 16–20; TEMP 97.9–98.9; O2SAT 94–98
[2023-03-19] MEDS: ACCU-CHEK COMFORT CURVE STRIP VI SCH ×4 (06:31→22:35)
[2023-03-19] MEDS: InsuLIN REG 1unit/0.01ml Soln (100units/ml) SC SCH ×4 (06:32→22:38)
[2023-03-19] MEDS: EMPAGLIFLOZIN 10 MG TAB PO SCH (06:34)
[2023-03-19] MEDS: SODIUM CHLOR 0.9% PF (SALINE LOCK) 10ML VIAL/SYR IV SCH ×3 (06:36→22:00)
[2023-03-19] MEDS: FLUDROCORTISONE ACETATE 0.1 MG TAB PO SCH (09:34)
[2023-03-19] MEDS: SPIRONOLACTONE 25 MG TAB PO SCH (09:34)
[2023-03-19] MEDS: ASPirin 81 mg TAB PO SCH (09:34)
[2023-03-19] MEDS: CARVEDILOL 3.125 MG TAB PO SCH ×2 (09:34→22:32)
[2023-03-19] MEDS: VALSARTAN 80 MG TAB PO SCH ×2 (09:35→12:43)
[2023-03-19] MEDS: ATORVASTATIN 20 MG TAB PO SCH (22:32)
[2023-03-20] VITALS (7 sets, daily range): BP systolic 124–147; BP diastolic 43–75; PULSE 47–58; RESP 16–20; TEMP 97.6–98.7; O2SAT 94–97
[2023-03-20] MEDS: ACETAMINOPHEN 325 MG TAB PO PRN (01:05)
[2023-03-20] MEDS ORDERED: SUMAtriptan SUCCINATE 25 MG TAB PO ONE (01:45)
[2023-03-20] MEDS: EMPAGLIFLOZIN 10 MG TAB PO SCH (06:26)
[2023-03-20] MEDS: SODIUM CHLOR 0.9% PF (SALINE LOCK) 10ML VIAL/SYR IV SCH (06:26)
[2023-03-20] MEDS: ACCU-CHEK COMFORT CURVE STRIP VI SCH (06:26)
[2023-03-20] MEDS: InsuLIN REG 1unit/0.01ml Soln (100units/ml) SC SCH (06:27)
[2023-03-20] MEDS: CARVEDILOL 3.125 MG TAB PO SCH (10:00)
[2023-03-20] MEDS: SPIRONOLACTONE 25 MG TAB PO SCH (10:00)
[2023-03-20] MEDS: VALSARTAN 80 MG TAB PO SCH (10:00)
[2023-03-20] MEDS: ASPirin 81 mg TAB PO SCH (10:00)
[2023-03-20] MEDS: FLUDROCORTISONE ACETATE 0.1 MG TAB PO SCH (10:00)
[2023-03-20] MEDS ORDERED: CARV6.25 PO (13:17)
[2023-03-20] MEDS ORDERED: FLU01T PO (13:17)
[2023-03-20] MEDS ORDERED: EMPA1TAB PO (13:17)
[2023-03-20] MEDS ORDERED: ATO40T PO (13:17)
[2023-03-20] MEDS ORDERED: VALS160T53 PO (13:17)
[2023-03-20] MEDS ORDERED: SPIR25TA PO (13:17)
[2023-03-20] MEDS ORDERED: METF-372 PO (13:17)
== END 2023-03-20 19:00 | disposition home or self-care (01) | DRG 35 ==
LOC: ER 23:46 → TELE 03-10 07:18 → TELE-CENTR 03-11 05:38 → ICU WEST 03-13 19:56 → TELE-WESTW 03-15 23:00
PROVIDERS: ADMIT Nurse Practitioner Acute Care; ATTEND Family Medicine
PROC: 037K3DZ Dilation of Right Internal Carotid Artery with Intraluminal Device, Percutaneous Approach (ICD-10-PCS; principal; 2023-03-13)
PROC: B3151ZZ Fluoroscopy of Bilateral Common Carotid Arteries using Low Osmolar Contrast (ICD-10-PCS; 2023-03-13)
PROC: B3181ZZ Fluoroscopy of Bilateral Internal Carotid Arteries using Low Osmolar Contrast (ICD-10-PCS; 2023-03-13)
PROC: B31C1ZZ Fluoroscopy of Bilateral External Carotid Arteries using Low Osmolar Contrast (ICD-10-PCS; 2023-03-13)
PROC: B31N1ZZ Fluoroscopy of Other Upper Arteries using Low Osmolar Contrast (ICD-10-PCS; 2023-03-13)
DX: I65.23 Occlusion and stenosis of bilateral carotid arteries (principal); E44.0 Moderate protein-calorie malnutrition; F15.10 Other stimulant abuse, uncomplicated; E88.09 Other disorders of plasma-protein metabolism, not elsewhere classified; E11.65 Type 2 diabetes mellitus with hyperglycemia; E83.51 Hypocalcemia; Z20.822 Contact with and (suspected) exposure to COVID-19; D64.9 Anemia, unspecified; E66.9 Obesity, unspecified; R79.89 Other specified abnormal findings of blood chemistry; I25.10 Atherosclerotic heart disease of native coronary artery without angina pectoris; M79.89 Other specified soft tissue disorders; I95.89 Other hypotension; I10 Essential (primary) hypertension; E78.00 Pure hypercholesterolemia, unspecified; I25.2 Old myocardial infarction; Z98.61 Coronary angioplasty status; Z59.00 Homelessness unspecified; Z91.199 Patient's noncompliance with other medical treatment and regimen due to unspecified reason; Z79.84 Long term (current) use of oral hypoglycemic drugs; Z68.29 Body mass index [BMI] 29.0-29.9, adult
CPT/HCPCS: 36223; 36415; 37215; 70450; 70498; 71045; 71275; 73110; 80053; 80061; 80307; 81001; 82010; 82565; 82962; 83036; 83735; 83880; 83930; 84443; 84484; 84520; 85025; 85379; 85610; 85730; 87081; 87426; 87804; 93005; 93306; 93886; 93970; 94640; 97110; 97116; 97163; 97530; 99152; G0378; J1815; J1885; P9047

== ENCOUNTER 2023-05-09 07:38 | Inpatient (IN) | payer BC, MEDICAID ==
[~2023-05-09] VITALS: Ht 175.3 cm; Wt 87.0 kg
[~2023-05-09 07:38] MED LIST changes: +ATO40T PO; +CARV6.25 PO; +EMPA1TAB PO; +FLU01T PO; +METF-372 PO; +SPIR25TA PO; +VALS160T53 PO
[2023-05-09 08:20] LABS: Basophils # (auto) 0 10 ^3/uL (0-0.2); Basophils % (auto) 0.5 % (0.0-2.0); Eosinophils # (auto) 0.1 10 ^3/uL (0-0.8); Eosinophils % (auto) 1.7 % (0.0-7.0); Hematocrit 42.8 % (41.0-53.0); Hemoglobin 13.9 g/dL (13.5-17.5); Lymphocytes # (auto) 1.5 10 ^3/uL (0.4-5.4); Lymphocytes % (auto) 17.2 % (10.0-50.0); Mean Corpuscular Hemoglobin 27.6 pg (28.0-32.0); Mean Corpuscular Hgb Conc. 32.5 g/dL (32.0-36.0); Monocytes # (auto) 0.7 10 ^3/uL (0-1.3); Monocytes % (auto) 7.4 % (0.0-12.0); Neutrophils # (auto) 6.4 10 ^3/uL (1.6-8.6); Neutrophils % (auto) 73.2 % (37.0-80.0); Nucleated Red Blood Cells % 0.1 %; Red Blood Cells 5.03 10^6/uL (4.5-5.90); Red Cell Distribution Width 14.5 % (11.8-14.3); White Blood Cell 8.7 10^3/uL (4.4-10.8)
[2023-05-09 08:28] LABS: Alanine Aminotransferase 17 U/L (7-40); Albumin 3.5 g/dL (3.2-4.8); Alkaline Phosphatase 102 U/L (46-116); Anion Gap 5 (5-15); Aspartate Aminotransferase 14 U/L (13-40); BUN/Creatinine Ratio 18.7 (10.0-20.0); Bilirubin, Total 0.8 mg/dL (0.2-1.0); Blood Alcohol < 3.0 mg/dL (<10); Blood Urea Nitrogen 25 mg/dL (9-23); Calcium 8.8 mg/dL (8.5-10.1); Carbon Dioxide 29 mmol/L (20-30); Chloride 97 mmol/L (98-107); Potassium 3.8 mmol/L (3.5-5.1); Sodium 131 mmol/L (136-145); Total Protein 6.3 g/dL (5.7-8.2)
[2023-05-09 08:32] LABS: Glucose 423 mg/dL (74-106)
[2023-05-09 08:41] LABS: Amphetamine Screen, Urine Neg (NEGATIVE); Barbiturate Scree,Urine Neg (NEGATIVE); Benzodiazephine Screen, Urine Neg (NEGATIVE); Cocaine Screen, Urine Neg (NEGATIVE); Urine Bacteria NONE SEEN /hpf (None Seen); Urine Blood 1+ /uL (Negative); Urine Clarity Clear (Clear); Urine Color Colorless (Yellow); Urine Protein, UAD 2+ (Negative); Urine Specific Gravity 1.017 (1.001-1.035); Urine Urobilinogen Normal (Negative); Urine WBC <1 /hpf (0 - 3); Urine pH 6.5 (5.0-8.0)
[2023-05-09 08:42] LABS: Cannabinoid Screen, Urine Neg (NEGATIVE); Opiate Scree,Urine Neg (NEGATIVE); Phencyclidine Screen, Urine Neg (NEGATIVE)
[2023-05-09] MEDS ORDERED: InsuLIN REG 1unit/0.01ml Soln (100units/ml) IV ONE (08:45)
[2023-05-09] MEDS ORDERED: SODIUM CHLORIDE 0.9% 1,000 ML IV ONE ×3 (08:45→13:30)
[2023-05-09] MEDS ORDERED: MORPHINE SULFATE INJ 2 MG/ml SYRG IV PRN (09:45)
[2023-05-09] MEDS ORDERED: DEXTROSE (50%) 50ML SYRG IV PRN (09:45)
[2023-05-09] MEDS ORDERED: DOCUSATE SOD 100 MG CAP PO PRN (09:45)
[2023-05-09] MEDS ORDERED: ONDANSETRON HCL 4 MG/2 ML VIAL IV PRN (09:45)
[2023-05-09 11:09] LABS: Creatinine, Urine 44.02 mg/dL (30.0-125.0)
[2023-05-09] MEDS: SPIRONOLACTONE 25 MG TAB PO SCH (11:20)
[2023-05-09] MEDS: CLOPIDOGREL BISULFATE 75 MG TAB PO SCH (11:20)
[2023-05-09] MEDS: ASPirin 81 mg TAB PO SCH (11:20)
[2023-05-09] MEDS: InsuLIN REG 1unit/0.01ml Soln (100units/ml) SC SCH ×3 (12:19→22:07)
[2023-05-09] MEDS: ACCU-CHEK COMFORT CURVE STRIP VI SCH ×3 (12:20→22:07)
[2023-05-09] MEDS: VALSARTAN 80 MG TAB PO SCH (13:16)
[2023-05-09] MEDS: HCTZ 25 MG TAB PO SCH (13:17)
[2023-05-09 19:33] VITALS: PULSE 86; RESP 17; O2SAT 96
[2023-05-09] MEDS ORDERED: LORazepam 2MG/ML-1ML VIAL IV PRN (20:30)
[2023-05-09] MEDS ORDERED: THIAMINE 100mg/ml INJ (200mg/2ml VIAL) IV ONE (20:45)
[2023-05-09] MEDS: ATORVASTATIN 20 MG TAB PO SCH (22:08)
[2023-05-09] MEDS: CARVEDILOL 3.125 MG TAB PO SCH (22:08)
[2023-05-09] MEDS ORDERED: CYANOCOBALAMIN (B-12) 1000 MCG/1 ML VIAL IM ONE (23:00)
[2023-05-09 23:08] LABS: Folate (Folic Acid) 11.22 ng/mL (>5.38)
[2023-05-10] VITALS (8 sets, daily range): BP systolic 113–152; BP diastolic 61–82; PULSE 69–84; RESP 12–18; TEMP 97.9–98.8; O2SAT 95–99
[2023-05-10] MEDS: InsuLIN REG 1unit/0.01ml Soln (100units/ml) SC SCH ×3 (07:00→21:41)
[2023-05-10] MEDS: ACCU-CHEK COMFORT CURVE STRIP VI SCH ×3 (07:00→21:43)
[2023-05-10] MEDS: SPIRONOLACTONE 25 MG TAB PO SCH (10:00)
[2023-05-10] MEDS: VALSARTAN 80 MG TAB PO SCH (10:00)
[2023-05-10] MEDS: ASPirin 81 mg TAB PO SCH (10:00)
[2023-05-10] MEDS: CARVEDILOL 3.125 MG TAB PO SCH ×2 (10:00→21:37)
[2023-05-10] MEDS: HCTZ 25 MG TAB PO SCH (10:00)
[2023-05-10] MEDS: CLOPIDOGREL BISULFATE 75 MG TAB PO SCH (10:00)
[2023-05-10 11:20] LABS: Alanine Aminotransferase 14 U/L (7-40); Albumin 3.2 g/dL (3.2-4.8); Alkaline Phosphatase 81 U/L (46-116); Anion Gap 6 (5-15); Aspartate Aminotransferase 11 U/L (13-40); BUN/Creatinine Ratio 12.6 (10.0-20.0); Bilirubin, Total 0.8 mg/dL (0.2-1.0); Blood Urea Nitrogen 15 mg/dL (9-23); Calcium 8.6 mg/dL (8.5-10.1); Carbon Dioxide 25 mmol/L (20-30); Chloride 104 mmol/L (98-107); Potassium 3.5 mmol/L (3.5-5.1); Sodium 135 mmol/L (136-145); Total Protein 5.8 g/dL (5.7-8.2)
[2023-05-10 11:39] LABS: Glucose 238 mg/dL (74-106)
[2023-05-10] MEDS ORDERED: ANGIOMAX 250 MG VIAL IV ONE (15:59)
[2023-05-10] MEDS ORDERED: GLYCOPYRROLATE 0.2 MG/ML 1ML VIAL ONE (16:00)
[2023-05-10] MEDS ORDERED: SODIUM CHL 0.9% 50 ML ONE (16:00)
[2023-05-10] MEDS ORDERED: LIDOCAINE 2%HCL (LOCAL ANESTH.) INJ 20ML MDV ONE (16:10)
[2023-05-10] MEDS ORDERED: IOHEXOL 350 MG/ML 100ML IJ ONE ×2 (16:11→16:29)
[2023-05-10 17:04] LABS: Basophils # (auto) 0 10 ^3/uL (0-0.2); Basophils % (auto) 0.5 % (0.0-2.0); Eosinophils # (auto) 0.3 10 ^3/uL (0-0.8); Eosinophils % (auto) 3.2 % (0.0-7.0); Hematocrit 42.9 % (41.0-53.0); Lymphocytes # (auto) 1.5 10 ^3/uL (0.4-5.4); Lymphocytes % (auto) 18.3 % (10.0-50.0); Mean Corpuscular Hemoglobin 28.1 pg (28.0-32.0); Mean Corpuscular Hgb Conc. 32.6 g/dL (32.0-36.0); Mean Corpuscular Volume 86.2 fL (80.0-100.0); Monocytes # (auto) 0.5 10 ^3/uL (0-1.3); Monocytes % (auto) 6.4 % (0.0-12.0); Neutrophils # (auto) 5.8 10 ^3/uL (1.6-8.6); Neutrophils % (auto) 71.6 % (37.0-80.0); Nucleated Red Blood Cells % 0.1 %; Red Blood Cells 4.99 10^6/uL (4.5-5.90); Red Cell Distribution Width 14.8 % (11.8-14.3); White Blood Cell 8.1 10^3/uL (4.4-10.8)
[2023-05-10] MEDS: CYANOCOBALAMIN 500 MCG TAB PO SCH (18:10)
[2023-05-10] MEDS: ATORVASTATIN 20 MG TAB PO SCH (21:36)
[2023-05-11] VITALS (8 sets, daily range): BP systolic 134–158; BP diastolic 58–87; PULSE 79–86; RESP 17–18; TEMP 98.1–98.6; O2SAT 94–98
[2023-05-11] MEDS: InsuLIN REG 1unit/0.01ml Soln (100units/ml) SC SCH ×4 (06:47→21:46)
[2023-05-11] MEDS: ACCU-CHEK COMFORT CURVE STRIP VI SCH ×4 (07:01→21:38)
[2023-05-11] MEDS: SPIRONOLACTONE 25 MG TAB PO SCH (10:29)
[2023-05-11] MEDS: CARVEDILOL 3.125 MG TAB PO SCH ×2 (10:32→21:19)
[2023-05-11] MEDS: HCTZ 25 MG TAB PO SCH (10:33)
[2023-05-11] MEDS: CYANOCOBALAMIN 500 MCG TAB PO SCH (10:33)
[2023-05-11] MEDS: ASPirin 81 mg TAB PO SCH (10:33)
[2023-05-11] MEDS: CLOPIDOGREL BISULFATE 75 MG TAB PO SCH (10:34)
[2023-05-11] MEDS: VALSARTAN 80 MG TAB PO SCH (10:52)
[2023-05-11] MEDS ORDERED: ASPI-325 PO (16:21)
[2023-05-11] MEDS ORDERED: CLOP75TA70 PO (16:21)
[2023-05-11] MEDS: ATORVASTATIN 20 MG TAB PO SCH (21:18)
[2023-05-12] MEDS ORDERED: NITROGLYCERIN 0.4 MG SL TAB SL PRN (01:45)
[2023-05-12] MEDS ORDERED: ASPirin 325 MG TAB PO ONE (01:45)
[2023-05-12 05:00] VITALS: BP 123/66; PULSE 86; RESP 18; TEMP 97.8; O2SAT 97
[2023-05-12] MEDS: ACCU-CHEK COMFORT CURVE STRIP VI SCH (06:14)
[2023-05-12] MEDS: InsuLIN REG 1unit/0.01ml Soln (100units/ml) SC SCH (06:17)
== END 2023-05-12 06:40 | disposition home or self-care (01) | DRG 67 ==
LOC: EDBD 07:38 → ER 07:38 → TELE 10:07 → TELE-EAST 05-10 10:58
PROVIDERS: ADMIT Nurse Practitioner Family; ATTEND Internal Medicine Geriatric Medicine
PROC: B31CYZZ Fluoroscopy of Bilateral External Carotid Arteries using Other Contrast (ICD-10-PCS; principal; 2023-05-10)
PROC: B318YZZ Fluoroscopy of Bilateral Internal Carotid Arteries using Other Contrast (ICD-10-PCS; 2023-05-10)
PROC: B315YZZ Fluoroscopy of Bilateral Common Carotid Arteries using Other Contrast (ICD-10-PCS; 2023-05-10)
DX: I65.23 Occlusion and stenosis of bilateral carotid arteries (principal); N17.0 Acute kidney failure with tubular necrosis; E87.1 Hypo-osmolality and hyponatremia; F15.10 Other stimulant abuse, uncomplicated; E11.65 Type 2 diabetes mellitus with hyperglycemia; I50.9 Heart failure, unspecified; R00.1 Bradycardia, unspecified; G40.909 Epilepsy, unspecified, not intractable, without status epilepticus; I11.0 Hypertensive heart disease with heart failure; E53.8 Deficiency of other specified B group vitamins; I25.10 Atherosclerotic heart disease of native coronary artery without angina pectoris; Z79.82 Long term (current) use of aspirin; I25.2 Old myocardial infarction; Z95.820 Peripheral vascular angioplasty status with implants and grafts
CPT/HCPCS: 36223; 36415; 70450; 70551; 80053; 80307; 80320; 81001; 82010; 82570; 82607; 82746; 82962; 84300; 84484; 85025; 93005; 93886; 96374; 97163; 99152; 99291; G0378; J1815

== ENCOUNTER 2023-05-12 18:39 | Inpatient (IN) | payer BC ==
[~2023-05-12] VITALS: Ht 175.3 cm; Wt 88.9 kg
[~2023-05-12 18:39] MED LIST changes: +ASPI-325 PO; -CARV6.25 PO; +CLOP75TA70 PO
[2023-05-12 19:23] LABS: Basophils # (auto) 0 10 ^3/uL (0-0.2); Basophils % (auto) 0.5 % (0.0-2.0); Eosinophils # (auto) 0.2 10 ^3/uL (0-0.8); Eosinophils % (auto) 1.8 % (0.0-7.0); Hematocrit 41.7 % (41.0-53.0); Mean Corpuscular Hemoglobin 28.3 pg (28.0-32.0); Mean Corpuscular Hgb Conc. 33.6 g/dL (32.0-36.0); Mean Corpuscular Volume 84.2 fL (80.0-100.0); Monocytes # (auto) 0.6 10 ^3/uL (0-1.3); Monocytes % (auto) 6.4 % (0.0-12.0); Neutrophils # (auto) 7.4 10 ^3/uL (1.6-8.6); Neutrophils % (auto) 80.3 % (37.0-80.0); Red Blood Cells 4.95 10^6/uL (4.5-5.90); Red Cell Distribution Width 14.8 % (11.8-14.3); White Blood Cell 9.3 10^3/uL (4.4-10.8)
[2023-05-12 19:40] LABS: Alanine Aminotransferase 12 U/L (7-40); Albumin 3.6 g/dL (3.2-4.8); Alkaline Phosphatase 87 U/L (46-116); Anion Gap 5 (5-15); Aspartate Aminotransferase 13 U/L (13-40); BUN/Creatinine Ratio 22.2 (10.0-20.0); Bilirubin, Total 0.8 mg/dL (0.2-1.0); Blood Urea Nitrogen 34 mg/dL (9-23); Calcium 8.9 mg/dL (8.7-10.4); Carbon Dioxide 27 mmol/L (20-30); Chloride 102 mmol/L (98-107); Potassium 4.1 mmol/L (3.5-5.1); Sodium 134 mmol/L (136-145); Total Protein 5.9 g/dL (5.7-8.2)
[2023-05-12 20:18] LABS: Glucose 352 mg/dL (74-106)
[2023-05-12 20:22] LABS: Magnesium 1.7 mg/dL (1.6-2.6)
[2023-05-12 20:30] VITALS: PULSE 88; RESP 18; O2SAT 98
[2023-05-12] MEDS: InsuLIN REG 1unit/0.01ml Soln (100units/ml) SC SCH (22:00)
[2023-05-12] MEDS: ATORVASTATIN 20 MG TAB PO SCH (22:00)
[2023-05-12] MEDS ORDERED: DOCUSATE SOD 100 MG CAP PO PRN (22:00)
[2023-05-12] MEDS ORDERED: HYDROcodone-ACET 5/325MG TAB PO PRN (22:00)
[2023-05-12] MEDS: FAMOTIDINE (10MG/ML) 2ML VL IV SCH (22:00)
[2023-05-12] MEDS ORDERED: ONDANSETRON HCL 4 MG/2 ML VIAL IV PRN (22:00)
[2023-05-12] MEDS ORDERED: ACETAMINOPHEN 325 MG TAB PO PRN (22:00)
[2023-05-12] MEDS ORDERED: NITROGLYCERIN 0.4 MG SL TAB SL PRN (22:00)
[2023-05-12] MEDS: ACCU-CHEK COMFORT CURVE STRIP VI SCH (22:00)
[2023-05-12] MEDS ORDERED: MORPHINE SULFATE INJ 2 MG/ml SYRG IV PRN (22:00)
[2023-05-12] MEDS ORDERED: DEXTROSE (50%) 50ML SYRG IV PRN (22:00)
[2023-05-12] MEDS: SODIUM CHLORIDE 0.9% 1,000 ML IV SCH (22:00)
[2023-05-12] MEDS ORDERED: hydrALAZINE HCL 20 MG/ML VL IV PRN (22:15)
[2023-05-13] VITALS (7 sets, daily range): BP systolic 133–147; BP diastolic 40–75; PULSE 70–79; RESP 14–18; TEMP 97.5–98.3; O2SAT 96–100
[2023-05-13 06:45] LABS: Basophils # (auto) 0.1 10 ^3/uL (0-0.2); Eosinophils # (auto) 0.2 10 ^3/uL (0-0.8); Eosinophils % (auto) 2.6 % (0.0-7.0); Hematocrit 42.8 % (41.0-53.0); Hemoglobin 14.3 g/dL (13.5-17.5); Lymphocytes # (auto) 1.7 10 ^3/uL (0.4-5.4); Mean Corpuscular Hgb Conc. 33.4 g/dL (32.0-36.0); Mean Corpuscular Volume 83.7 fL (80.0-100.0); Monocytes # (auto) 0.7 10 ^3/uL (0-1.3); Monocytes % (auto) 7.3 % (0.0-12.0); Neutrophils # (auto) 6.6 10 ^3/uL (1.6-8.6); Neutrophils % (auto) 71.1 % (37.0-80.0); Nucleated Red Blood Cells % 0.1 %; Red Blood Cells 5.11 10^6/uL (4.5-5.90); Red Cell Distribution Width 14.7 % (11.8-14.3); White Blood Cell 9.3 10^3/uL (4.4-10.8)
[2023-05-13 07:01] LABS: Alanine Aminotransferase 10 U/L (7-40); Albumin 3.8 g/dL (3.2-4.8); Alkaline Phosphatase 90 U/L (46-116); Anion Gap 6 (5-15); Aspartate Aminotransferase 13 U/L (13-40); Blood Urea Nitrogen 23 mg/dL (9-23); Calcium 9.1 mg/dL (8.7-10.4); Carbon Dioxide 26 mmol/L (20-30); Chloride 102 mmol/L (98-107); Glucose 298 mg/dL (74-106); Potassium 3.8 mmol/L (3.5-5.1); Sodium 134 mmol/L (136-145)
[2023-05-13 07:02] LABS: Bilirubin, Total 0.9 mg/dL (0.2-1.0); Total Protein 6.6 g/dL (5.7-8.2)
[2023-05-13] MEDS: ACCU-CHEK COMFORT CURVE STRIP VI SCH ×4 (08:16→21:31)
[2023-05-13] MEDS: InsuLIN REG 1unit/0.01ml Soln (100units/ml) SC SCH ×4 (08:19→21:33)
[2023-05-13] MEDS: FAMOTIDINE (10MG/ML) 2ML VL IV SCH ×2 (11:05→21:27)
[2023-05-13] MEDS: ASPirin 81 mg TAB PO SCH (11:05)
[2023-05-13] MEDS: CLOPIDOGREL BISULFATE 75 MG TAB PO SCH (11:05)
[2023-05-13] MEDS: SODIUM CHLORIDE 0.9% 1,000 ML IV SCH (14:40)
[2023-05-13] MEDS: metFORMIN HYDROCHLORIDE 500 MG TAB PO SCH (18:01)
[2023-05-13] MEDS: ATORVASTATIN 20 MG TAB PO SCH (21:27)
[2023-05-14 03:23] LABS: Urine Bacteria NONE SEEN /hpf (None Seen); Urine Blood Negative /uL (Negative); Urine Clarity Clear (Clear); Urine Color Yellow (Yellow); Urine Protein, UAD 2+ (Negative); Urine Specific Gravity 1.019 (1.001-1.035); Urine Urobilinogen Normal (Negative); Urine WBC <1 /hpf (0 - 3); Urine pH 6.5 (5.0-8.0)
[2023-05-14 03:41] LABS: Amphetamine Screen, Urine Neg (NEGATIVE); Barbiturate Scree,Urine Neg (NEGATIVE); Benzodiazephine Screen, Urine Neg (NEGATIVE); Cannabinoid Screen, Urine Neg (NEGATIVE); Cocaine Screen, Urine Neg (NEGATIVE); Opiate Scree,Urine Neg (NEGATIVE); Phencyclidine Screen, Urine Neg (NEGATIVE)
[2023-05-14] MEDS: ACCU-CHEK COMFORT CURVE STRIP VI SCH ×3 (06:20→17:00)
[2023-05-14] MEDS: InsuLIN REG 1unit/0.01ml Soln (100units/ml) SC SCH ×3 (06:26→17:00)
[2023-05-14 06:45] LABS: Anion Gap 7 (5-15); Calcium 8.8 mg/dL (8.5-10.1); Carbon Dioxide 25 mmol/L (20-30); Chloride 105 mmol/L (98-107); Potassium 4.2 mmol/L (3.5-5.1); Sodium 137 mmol/L (136-145)
[2023-05-14 06:51] LABS: BUN/Creatinine Ratio 21.6 (10.0-20.0); Blood Urea Nitrogen 22 mg/dL (9-23)
[2023-05-14 07:00] LABS: Glucose 193 mg/dL (74-106)
[2023-05-14] MEDS: SODIUM CHLORIDE 0.9% 1,000 ML IV SCH (07:20)
[2023-05-14 08:00] VITALS: PULSE 85
[2023-05-14] MEDS: metFORMIN HYDROCHLORIDE 500 MG TAB PO SCH (08:31)
[2023-05-14 09:00] VITALS: BP 141/77; PULSE 73; RESP 17; TEMP 98; O2SAT 96
[2023-05-14] MEDS: FAMOTIDINE (10MG/ML) 2ML VL IV SCH (09:58)
[2023-05-14] MEDS: ASPirin 81 mg TAB PO SCH (09:58)
[2023-05-14] MEDS: CLOPIDOGREL BISULFATE 75 MG TAB PO SCH (09:58)
[2023-05-14 13:00] VITALS: BP 152/79; PULSE 80; RESP 18; TEMP 97.8; O2SAT 96
[2023-05-14 15:09] VITALS: TEMP 36.6
== END 2023-05-14 18:17 | disposition home or self-care (01) | DRG 682 ==
LOC: ER 18:39 → EDBD 18:39 → TELE 22:12 → TELE-WESTW 05-13 10:17
PROVIDERS: ADMIT Nurse Practitioner Family; ATTEND Internal Medicine Geriatric Medicine
DX: N17.9 Acute kidney failure, unspecified (principal); G93.41 Metabolic encephalopathy; G45.0 Vertebro-basilar artery syndrome; Z59.00 Homelessness unspecified; E11.65 Type 2 diabetes mellitus with hyperglycemia; I50.9 Heart failure, unspecified; I11.0 Hypertensive heart disease with heart failure; E11.51 Type 2 diabetes mellitus with diabetic peripheral angiopathy without gangrene; I25.10 Atherosclerotic heart disease of native coronary artery without angina pectoris; E78.5 Hyperlipidemia, unspecified; I25.2 Old myocardial infarction; Z98.61 Coronary angioplasty status; Z79.82 Long term (current) use of aspirin
CPT/HCPCS: 36415; 70450; 71045; 80048; 80053; 80307; 80320; 81001; 82140; 82962; 83690; 83735; 83880; 84484; 85025; 87040; 87081; 93005; G0378; J1815; J3490